=== PATIENT | female | born 1970 | race Caucasian/White ===

== ENCOUNTER 2017-01-01 21:56 | Emergency (ER) | payer MEDICAID, SELFPAY ==
[~2017-01-01] VITALS: Ht 160 cm; Wt 96.4 kg
[2017-01-01 22:00] VITALS: BP 174/116
[2017-01-02] MEDS ORDERED: OXYcodone/APAP 5/325MG TABLET ONE (00:53)
[2017-01-02] MEDS ORDERED: ONDANSETRON ODT 4 MG ONE (00:54)
[2017-01-02] MEDS ORDERED: ONDANSETRON ODT 4 MG PO ONE (01:00)
[2017-01-02] MEDS ORDERED: OXYcodone/APAP 5/325MG TABLET PO ONE (01:00)
== END 2017-01-02 01:40 | disposition home or self-care (01) ==
LOC: ED 01-02 01:30
DX: S39.012A Strain of muscle, fascia and tendon of lower back, initial encounter (principal); I10 Essential (primary) hypertension; X58.XXXA Exposure to other specified factors, initial encounter; Y93.89 Activity, other specified; Y92.89 Other specified places as the place of occurrence of the external cause; Y99.8 Other external cause status
CPT/HCPCS: 72072; 72110; 99284; Q0162